=== PATIENT | male | born 1990 | race Caucasian/White ===

== ENCOUNTER → 2017-01-24 | Outpatient (CLI) | payer MEDICAID ==
[~2017-01-24] MED LIST: BUSPAR5 MG PO; CALCIUM 600MG+D1 TAB PO; CLARITIN 1010 MG/TAB PO; MELATONIN5 M1 SL; PREVACID 15MG15 M1 PO; SLOW FE142 MG PO
== END ==
LOC: EDSEX 08:10 → COL.RAD 08:10
DX: K21.9 Gastro-esophageal reflux disease without esophagitis (principal); K44.9 Diaphragmatic hernia without obstruction or gangrene; Q89.8 Other specified congenital malformations
CPT/HCPCS: A9541

== ENCOUNTER 2017-01-28 07:08 | Day surgery (SDC) | payer MEDICAID ==
[~2017-01-28] VITALS: Ht 157.5 cm; Wt 49.6 kg
[2017-01-28 07:35] VITALS: BP 123/81; PULSE 72; TEMP 97.4
[2017-01-28] MEDS ORDERED: BUSPAR5 MG PO (07:54)
[2017-01-28] MEDS ORDERED: SLOW FE142 MG PO (07:55)
[2017-01-28] MEDS ORDERED: CLARITIN 1010 MG/TAB PO (07:55)
[2017-01-28] MEDS ORDERED: PREVACID 15MG15 M1 PO (07:56)
[2017-01-28] MEDS ORDERED: CALCIUM 600MG+D1 TAB PO (08:00)
[2017-01-28] MEDS ORDERED: MELATONIN5 M1 SL (08:01)
[2017-01-28 09:10] VITALS: BP 105/64; PULSE 84; TEMP 98.5
[2017-01-28 09:15] VITALS: BP 94/52; PULSE 75
[2017-01-28 09:30] VITALS: BP 94/81; PULSE 90
[2017-01-28 09:45] VITALS: BP 96/62; PULSE 83
== END 2017-01-28 09:54 | disposition home or self-care (01) ==
LOC: SDCO 07:08
DX: K22.2 Esophageal obstruction (principal); K44.9 Diaphragmatic hernia without obstruction or gangrene; T18.2XXA Foreign body in stomach, initial encounter; K21.0 Gastro-esophageal reflux disease with esophagitis; Q89.8 Other specified congenital malformations; I82.0 Budd-Chiari syndrome; D64.9 Anemia, unspecified; K59.00 Constipation, unspecified; R19.7 Diarrhea, unspecified
CPT/HCPCS: OP; C1726; J2250; J2405; J3010; J7030

== ENCOUNTER 2018-06-09 09:19 | Day surgery (SDC) | payer MEDICAID ==
[~2018-06-09] VITALS: Ht 157.5 cm; Wt 50.5 kg
[2018-06-09] MEDS ORDERED: PRILOSEC 20MG20 MG PO (09:37)
[2018-06-09] MEDS ORDERED: D3-5050000 IU PO (09:38)
[2018-06-09] MEDS ORDERED: MAGNESIUM250 M1 PO (09:38)
[2018-06-09] MEDS ORDERED: CALCITRIOL PO (09:38)
[2018-06-09 09:39] VITALS: BP 119/82; PULSE 80; TEMP 98.4
[2018-06-09] MEDS ORDERED: NATURAL POTASS595 MG PO (09:39)
[2018-06-09 11:10] VITALS: BP 119/86; PULSE 93; TEMP 97.8
[2018-06-09 11:15] VITALS: BP 100/60; PULSE 76
[2018-06-09 11:30] VITALS: BP 104/68; PULSE 82
[2018-06-09 11:45] VITALS: BP 103/61; PULSE 69
== END 2018-06-09 11:58 | disposition home or self-care (01) ==
LOC: SDCO 09:19
DX: K22.2 Esophageal obstruction (principal); K44.9 Diaphragmatic hernia without obstruction or gangrene; K21.9 Gastro-esophageal reflux disease without esophagitis; D64.9 Anemia, unspecified; K59.00 Constipation, unspecified; Z83.79 Family history of other diseases of the digestive system
CPT/HCPCS: C1726; J2250; J3010; J7030

== ENCOUNTER 2019-01-26 13:31 | Day surgery (SDC) | payer MEDICAID ==
[~2019-01-26] VITALS: Ht 154.9 cm; Wt 50.6 kg
[~2019-01-26 13:31] MED LIST changes: +CALCITRIOL PO; +D3-5050000 IU PO; +MAGNESIUM250 M1 PO; +NATURAL POTASS595 MG PO; +PRILOSEC 20MG20 MG PO
[2019-01-26 14:26] VITALS: BP 115/77; PULSE 80; TEMP 98.6
[2019-01-26] MEDS ORDERED: VITAMIN D 1001000 IU PO (14:43)
[2019-01-26 15:00] VITALS: BP 112/72; PULSE 100; TEMP 98.4
--- NOTE | 2019-01-26 15:00 | NUR ---
Pt returned via cart to bay. Ambulated to recliner in bay with staff and stand by assist. VSS-documented. Pt requested to rest at this time. Call light in reach and mother remains in room.
[2019-01-26 15:25] VITALS: BP 100/66; PULSE 89
[2019-01-26 15:40] VITALS: BP 105/74; PULSE 80
--- NOTE | 2019-01-26 16:00 | NUR ---
Pt tolerated applesauce and apple juice. IV removed and documented. VS remain stable. Discharge teaching completed. Pt and mother verbalized understanding. Taken via wheelchair to private vehicle for dc home with mother driving.
== END 2019-01-26 16:00 | disposition home or self-care (01) ==
LOC: SDCO 13:31
DX: K22.2 Esophageal obstruction (principal); K22.5 Diverticulum of esophagus, acquired; K21.9 Gastro-esophageal reflux disease without esophagitis; D64.9 Anemia, unspecified; K59.00 Constipation, unspecified; F32.9 Major depressive disorder, single episode, unspecified; M81.0 Age-related osteoporosis without current pathological fracture
CPT/HCPCS: C1726; J2250; J3010; J7030

== ENCOUNTER 2020-08-08 08:38 | Day surgery (SDC) | payer MEDICAID ==
[~2020-08-08] VITALS: Ht 157.5 cm; Wt 56.2 kg
[~2020-08-08 08:38] MED LIST changes: +BUSPAR10 MG PO; -BUSPAR5 MG PO; +PRIL40 PO; -PRILOSEC 20MG20 MG PO; +VITAMIN D31000 I1 PO
[2020-08-08 09:22] VITALS: BP 115/70; PULSE 80; TEMP 98.1
[2020-08-08] MEDS ORDERED: MELATONIN1 MG PO (09:24)
--- NOTE | 2020-08-08 09:27 | NUR ---
CALL LIGHT IN REACH MOTHER AT BEDSIDE.
[2020-08-08 10:30] VITALS: BP 112/69; PULSE 72; TEMP 97.1
--- NOTE | 2020-08-08 10:30 | NUR ---
Pt returned via cart to [facility]. A&O. VSS-see flowsheet. Mother present in room. Pt sitting up in recliner/chair. Call light in reach.
[2020-08-08 10:45] VITALS: BP 109/66; PULSE 70
--- NOTE | 2020-08-08 10:45 | NUR ---
Pt tolerating pudding and juice without difficulties. Denies needs. Call light within reach
[2020-08-08 11:00] VITALS: BP 110/69; PULSE 74
--- NOTE | 2020-08-08 11:00 | NUR ---
Pt continues to rest. Discharge instructions reviewed. Pt voices understanding. IV site discontinued with all parts intact. Pt up to dress. Call light within reach.
--- NOTE | 2020-08-08 11:27 | NUR ---
Pt escorted to private car via wheel chair. Pt accompanied home by his mother.
== END 2020-08-08 11:27 | disposition home or self-care (01) ==
LOC: SDCO 08:38
DX: K22.2 Esophageal obstruction (principal); K22.5 Diverticulum of esophagus, acquired; K21.9 Gastro-esophageal reflux disease without esophagitis; Q89.8 Other specified congenital malformations; D64.9 Anemia, unspecified; M81.0 Age-related osteoporosis without current pathological fracture; F32.9 Major depressive disorder, single episode, unspecified; K44.9 Diaphragmatic hernia without obstruction or gangrene
CPT/HCPCS: C1726; J2704; J7120